=== PATIENT | male | born 1965 | race Two or more races ===

== ENCOUNTER 2019-10-05 17:32 | Emergency (ER) | payer SELFPAY ==
[~2019-10-05] VITALS: Ht 188 cm; Wt 81.6 kg
[2019-10-05] MEDS ORDERED: SODIUM CHLORIDE 0.9% 1,000 ML IVB ONE (17:39)
[2019-10-05 17:53] LABS: Basophils # (auto) 0 10 ^3/uL (0-0.2); Basophils % (auto) 0.4 % (0.0-2.0); Eosinophils # (auto) 0.3 10 ^3/uL (0-0.8); Eosinophils % (auto) 3.4 % (0.0-7.0); Hematocrit 45.2 % (41.0-53.0); Hemoglobin 15.5 g/dL (13.5-17.5); Lymphocytes # (auto) 1.4 10 ^3/uL (0.4-5.4); Lymphocytes % (auto) 17.4 % (10.0-50.0); Mean Corpuscular Hemoglobin 32.4 pg (28.0-32.0); Mean Corpuscular Hgb Conc. 34.3 g/dL (32.0-36.0); Mean Corpuscular Volume 94.5 fL (80.0-100.0); Monocytes # (auto) 0.7 10 ^3/uL (0-1.3); Monocytes % (auto) 8.6 % (0.0-12.0); Neutrophils # (auto) 5.8 10 ^3/uL (1.6-8.6); Neutrophils % (auto) 70.2 % (37.0-80.0); Nucleated Red Blood Cells % 0.1 %; Platelet Count (auto) 192 10^3/uL (140-450); Red Blood Cells 4.79 10^6/uL (4.5-5.90); Red Cell Distribution Width 13.5 % (11.8-14.3); White Blood Cell 8.2 10^3/uL (4.4-10.8)
[2019-10-05 18:09] LABS: Albumin 3.9 g/dL (3.4-5.0); Anion Gap 5 (5-15); Blood Alcohol < 3.0 mg/dL (0-5); Blood Urea Nitrogen 15 mg/dL (7-18); Calcium 8.7 mg/dL (8.5-10.1); Carbon Dioxide 27 mmol/L (21-32); Chloride 107 mmol/L (98-107); Glucose 234 mg/dL (74-106); Potassium 3.9 mmol/L (3.5-5.1); Sodium 139 mmol/L (136-145)
[2019-10-05 18:12] LABS: Alanine Aminotransferase 42 U/L (16-61); Alkaline Phosphatase 103 U/L (45-117); Aspartate Aminotransferase 38 U/L (15-37); BUN/Creatinine Ratio 10.4; Bilirubin, Total 0.5 mg/dL (0.2-1.0); GFR African American 66 mL/min; GFR Non-African American 55 mL/min
[2019-10-06 04:56] VITALS: BP 108/68
[2019-10-06 06:06] LABS: Alcohol, Urine < 3.0 mg/dL (0-10); Amphetamine Screen, Urine POSITIVE (NEGATIVE); Barbiturate Scree,Urine NEGATIVE (NEGATIVE); Benzodiazephine Screen, Urine NEGATIVE (NEGATIVE); Cannabinoid Screen, Urine POSITIVE (NEGATIVE); Cocaine Screen, Urine NEGATIVE (NEGATIVE); Opiate Scree,Urine NEGATIVE (NEGATIVE); Phencyclidine Screen, Urine NEGATIVE (NEGATIVE)
== END 2019-10-06 05:48 | disposition home or self-care (01) ==
LOC: EDBD 17:32 → ER 17:32
DX: T40.1X1A Poisoning by heroin, accidental (unintentional), initial encounter (principal); R41.82 Altered mental status, unspecified; F10.10 Alcohol abuse, uncomplicated; F15.10 Other stimulant abuse, uncomplicated; F17.210 Nicotine dependence, cigarettes, uncomplicated; F11.10 Opioid abuse, uncomplicated; Y90.0 Blood alcohol level of less than 20 mg/100 ml; Y92.89 Other specified places as the place of occurrence of the external cause
CPT/HCPCS: 36415; 71045; 80053; 80307; 80320; 85025; 93005; 96360

== ENCOUNTER 2019-10-15 04:11 | Emergency (ER) | payer MEDICAID, OTHER ==
[~2019-10-15] VITALS: Ht 185.4 cm; Wt 94.3 kg
[2019-10-15 09:29] VITALS: BP 146/89
== END 2019-10-15 09:30 | disposition home or self-care (01) ==
LOC: ER 04:11
DX: S22.41XA Multiple fractures of ribs, right side, initial encounter for closed fracture (principal); M25.511 Pain in right shoulder; F17.210 Nicotine dependence, cigarettes, uncomplicated; V23.4XXA Motorcycle driver injured in collision with car, pick-up truck or van in traffic accident, initial encounter; Y93.I9 Activity, other involving external motion; Y92.410 Unspecified street and highway as the place of occurrence of the external cause; Y99.8 Other external cause status
CPT/HCPCS: 70450; 71250; 72125; 73030; 74176

== ENCOUNTER 2019-10-23 22:18 | Emergency (ER) | payer MEDICAID, OTHER ==
[~2019-10-23] VITALS: Ht 185.4 cm; Wt 93.0 kg
[2019-10-23 22:45] VITALS: BP 142/88
[2019-10-23] MEDS ORDERED: KETOROLAC TROMETH 60MG/2ML VIAL IM ONE (23:30)
[2019-10-23] MEDS ORDERED: cefTRIAXone SOD 1,000 MG VL IM ONE (23:30)
[2019-10-23] MEDS ORDERED: TETANUS-DIPTH-ACEL PERTUSSIS 0.5ML SYR Tdap IM ONE (23:45)
== END 2019-10-24 00:50 | disposition home or self-care (01) ==
LOC: ER 22:18
DX: S91.332A Puncture wound without foreign body, left foot, initial encounter (principal); B35.3 Tinea pedis; X58.XXXA Exposure to other specified factors, initial encounter; Y93.89 Activity, other specified; Y92.89 Other specified places as the place of occurrence of the external cause; Y99.8 Other external cause status
CPT/HCPCS: 90471; 90715; 96372; 99284; J0696; J1885

== ENCOUNTER 2023-01-22 06:49 | Emergency (ER) | payer MEDICAID ==
[~2023-01-22] VITALS: Ht 185.4 cm; Wt 97.4 kg
[2023-01-22 08:02] VITALS: BP 134/81; PULSE 89; RESP 18; TEMP 97.4; O2SAT 99
[2023-01-22] MEDS ORDERED: KETOROLAC TROMETH 60MG/2ML VIAL IM ONE (08:15)
[2023-01-22] MEDS ORDERED: CYCL-839 PO (08:32)
[2023-01-22] MEDS ORDERED: IBUP1TAB5 PO (08:32)
== END 2023-01-22 08:56 | disposition home or self-care (01) ==
LOC: ER 06:49
DX: S42.031A Displaced fracture of lateral end of right clavicle, initial encounter for closed fracture (principal); E78.5 Hyperlipidemia, unspecified; F17.210 Nicotine dependence, cigarettes, uncomplicated; F15.90 Other stimulant use, unspecified, uncomplicated; Z79.1 Long term (current) use of non-steroidal anti-inflammatories (NSAID); Z79.899 Other long term (current) drug therapy; V19.9XXA Pedal cyclist (driver) (passenger) injured in unspecified traffic accident, initial encounter; Y93.I9 Activity, other involving external motion; Y92.89 Other specified places as the place of occurrence of the external cause; Y99.8 Other external cause status
CPT/HCPCS: 73030; 96372; 99283; J1885

== ENCOUNTER 2023-05-25 23:02 | Inpatient (IN) | payer MEDICAID ==
[~2023-05-25] VITALS: Ht 193 cm; Wt 83.5 kg
[~2023-05-25 23:02] MED LIST: CYCL-839 PO; IBUP1TAB5 PO
[2023-05-26 00:20] LABS: Basophils # (auto) 0 10 ^3/uL (0-0.2); Basophils % (auto) 0.5 % (0.0-2.0); Eosinophils # (auto) 0.5 10 ^3/uL (0-0.8); Eosinophils % (auto) 4.9 % (0.0-7.0); Hematocrit 43.3 % (41.0-53.0); Hemoglobin 14.5 g/dL (13.5-17.5); Lymphocytes # (auto) 1.2 10 ^3/uL (0.4-5.4); Lymphocytes % (auto) 12.6 % (10.0-50.0); Mean Corpuscular Hemoglobin 31.8 pg (28.0-32.0); Mean Corpuscular Hgb Conc. 33.5 g/dL (32.0-36.0); Mean Corpuscular Volume 94.9 fL (80.0-100.0); Monocytes % (auto) 9.9 % (0.0-12.0); Neutrophils % (auto) 72.1 % (37.0-80.0); Red Blood Cells 4.57 10^6/uL (4.5-5.90); Red Cell Distribution Width 12.9 % (11.8-14.3); White Blood Cell 9.7 10^3/uL (4.4-10.8)
[2023-05-26 00:40] LABS: Alanine Aminotransferase 130 U/L (7-40); Albumin 4.2 g/dL (3.2-4.8); Alkaline Phosphatase 97 U/L (46-116); Anion Gap 6 (5-15); Aspartate Aminotransferase 70 U/L (13-40); BUN/Creatinine Ratio 10.2 (10.0-20.0); Blood Urea Nitrogen 9 mg/dL (9-23); Calcium 8.8 mg/dL (8.7-10.4); Carbon Dioxide 23 mmol/L (20-30); Chloride 106 mmol/L (98-107); Glucose 142 mg/dL (74-106); Lipase 37 U/L (12-53); Potassium 3.5 mmol/L (3.5-5.1); Sodium 135 mmol/L (136-145)
[2023-05-26] MEDS: HYDROcodone-ACET 10/325MG TAB PO ONE (00:40)
[2023-05-26 00:41] LABS: Bilirubin, Total 0.4 mg/dL (0.2-1.0)
[2023-05-26 02:10] VITALS: PULSE 89; RESP 20; O2SAT 97
[2023-05-26] MEDS: CLINDAMYCIN 900MG IV 50 ML IV ONE (02:34)
[2023-05-26] MEDS ORDERED: IBUPROFEN 600 MG TAB PO PRN (03:30)
[2023-05-26] MEDS ORDERED: DOCUSATE SOD 100 MG CAP PO PRN (03:30)
[2023-05-26] MEDS ORDERED: ONDANSETRON HCL 4 MG/2 ML VIAL IV PRN (03:30)
[2023-05-26] MEDS: SODIUM CHLORIDE 0.9% 1,000 ML IV SCH (04:26)
[2023-05-26 04:29] LABS: Alanine Aminotransferase 137 U/L (7-40); Albumin 4.2 g/dL (3.2-4.8); Alkaline Phosphatase 98 U/L (46-116); Anion Gap 7 (5-15); Aspartate Aminotransferase 76 U/L (13-40); BUN/Creatinine Ratio 7.4 (10.0-20.0); Blood Urea Nitrogen 6 mg/dL (9-23); Calcium 8.8 mg/dL (8.7-10.4); Carbon Dioxide 22 mmol/L (20-30); Chloride 106 mmol/L (98-107); Glucose 94 mg/dL (74-106); Potassium 3.7 mmol/L (3.5-5.1); Sodium 135 mmol/L (136-145)
[2023-05-26 04:30] LABS: Bilirubin, Total 0.6 mg/dL (0.2-1.0); Total Protein 7.2 g/dL (5.7-8.2)
[2023-05-26 04:47] LABS: Basophils # (auto) 0 10 ^3/uL (0-0.2); Basophils % (auto) 0.6 % (0.0-2.0); Eosinophils # (auto) 0.5 10 ^3/uL (0-0.8); Eosinophils % (auto) 6.6 % (0.0-7.0); Lymphocytes # (auto) 1.3 10 ^3/uL (0.4-5.4); Lymphocytes % (auto) 16.1 % (10.0-50.0); Mean Corpuscular Hgb Conc. 33.4 g/dL (32.0-36.0); Mean Corpuscular Volume 95.8 fL (80.0-100.0); Monocytes # (auto) 0.8 10 ^3/uL (0-1.3); Monocytes % (auto) 10.2 % (0.0-12.0); Neutrophils # (auto) 5.3 10 ^3/uL (1.6-8.6); Neutrophils % (auto) 66.5 % (37.0-80.0); Red Cell Distribution Width 13.4 % (11.8-14.3)
[2023-05-26] MEDS ORDERED: NITROGLYCERIN 0.4 MG SL TAB SL PRN (05:15)
[2023-05-26] MEDS ORDERED: MORPHINE SULFATE INJ 2 MG/ml SYRG IV PRN (05:15)
[2023-05-26 08:46] VITALS: PULSE 82; RESP 19; O2SAT 100
[2023-05-26] MEDS: CLINDAMYCIN 600MG IV 50 ML IV SCH (10:30)
[2023-05-26] MEDS ORDERED: VANCOMYCIN PER PHARMACY 0 MG IV SCH (12:00)
[2023-05-26] MEDS: HYDROcodone-ACET 5/325MG TAB PO PRN (14:24)
[2023-05-26] MEDS: cefTRIAXone 1GM/50ML D5W 50 ML IV ONE (14:24)
[2023-05-26] MEDS: VANCOMYCIN 1GM/200ML 200 ML IV ONE (14:25)
[2023-05-26 14:30] VITALS: RESP 19
[2023-05-26 19:30] VITALS: PULSE 80; RESP 20; O2SAT 98
[2023-05-26 21:11] VITALS: BP 131/85; PULSE 81; PULSE 82; RESP 20; TEMP 97.8; O2SAT 99
[2023-05-26 22:00] VITALS: BP 131/85; PULSE 82; RESP 20; TEMP 97.8; O2SAT 99
[2023-05-26] MEDS: VANCOMYCIN 1GM/200ML 200 ML IV SCH (22:21)
[2023-05-27 04:57] VITALS: BP 125/95; PULSE 82; RESP 18; TEMP 97.7; O2SAT 99
[2023-05-27 07:17] LABS: Basophils # (auto) 0 10 ^3/uL (0-0.2); Basophils % (auto) 0.7 % (0.0-2.0); Eosinophils # (auto) 0.5 10 ^3/uL (0-0.8); Hematocrit 44.5 % (41.0-53.0); Lymphocytes # (auto) 1.1 10 ^3/uL (0.4-5.4); Lymphocytes % (auto) 16.5 % (10.0-50.0); Mean Corpuscular Hemoglobin 32.1 pg (28.0-32.0); Mean Corpuscular Hgb Conc. 33.8 g/dL (32.0-36.0); Mean Corpuscular Volume 95.1 fL (80.0-100.0); Monocytes # (auto) 0.8 10 ^3/uL (0-1.3); Monocytes % (auto) 12.1 % (0.0-12.0); Neutrophils # (auto) 4.1 10 ^3/uL (1.6-8.6); Neutrophils % (auto) 63.7 % (37.0-80.0); Nucleated Red Blood Cells % 0.4 %; Red Blood Cells 4.68 10^6/uL (4.5-5.90); Red Cell Distribution Width 12.9 % (11.8-14.3); White Blood Cell 6.5 10^3/uL (4.4-10.8)
[2023-05-27 07:35] LABS: Alanine Aminotransferase 130 U/L (7-40); Alkaline Phosphatase 92 U/L (46-116); Anion Gap 6 (5-15); Blood Urea Nitrogen 6 mg/dL (9-23); Calcium 8.9 mg/dL (8.5-10.1); Carbon Dioxide 24 mmol/L (20-30); Chloride 106 mmol/L (98-107); Glucose 84 mg/dL (74-106); Potassium 4.1 mmol/L (3.5-5.1); Sodium 136 mmol/L (136-145)
[2023-05-27 07:36] LABS: Albumin 3.8 g/dL (3.2-4.8); Aspartate Aminotransferase 83 U/L (13-40)
[2023-05-27 07:37] LABS: Bilirubin, Total 0.5 mg/dL (0.2-1.0); Total Protein 6.7 g/dL (5.7-8.2)
[2023-05-27 08:00] VITALS: PULSE 85; RESP 18; O2SAT 100
[2023-05-27 09:17] VITALS: BP 132/89; PULSE 85; RESP 18; TEMP 98; O2SAT 100
[2023-05-27] MEDS: cefTRIAXone 1GM/50ML D5W 50 ML IV SCH (09:45)
[2023-05-27 13:00] VITALS: BP 114/78; PULSE 80; RESP 20; TEMP 97.6; O2SAT 98
[2023-05-27 17:00] VITALS: BP 110/66; PULSE 66; RESP 18; TEMP 98.6; O2SAT 95
[2023-05-27 20:00] VITALS: RESP 18
[2023-05-27] MEDS: VANCOMYCIN 1GM/200ML 200 ML IV SCH (20:23)
[2023-05-28 05:00] VITALS: BP 99/70; PULSE 80; RESP 20; TEMP 97.8; O2SAT 99
[2023-05-28 08:06] LABS: Chloride 107 mmol/L (98-107); Potassium 4.1 mmol/L (3.5-5.1); Sodium 136 mmol/L (136-145)
[2023-05-28 08:07] LABS: Anion Gap 5 (5-15); Calcium 8.9 mg/dL (8.7-10.4); Carbon Dioxide 24 mmol/L (20-30)
[2023-05-28 08:12] LABS: BUN/Creatinine Ratio 11.3 (10.0-20.0); Blood Urea Nitrogen 9 mg/dL (9-23); Glucose 87 mg/dL (74-106)
[2023-05-28 08:30] VITALS: BP 118/70; PULSE 79; RESP 17; TEMP 97.8; O2SAT 99
[2023-05-28 12:30] VITALS: BP 133/81; PULSE 82; RESP 18; TEMP 97.3; O2SAT 99
[2023-05-28 16:56] VITALS: BP 130/67; PULSE 74; RESP 18; TEMP 97.8; O2SAT 100
[2023-05-28 20:00] VITALS: PULSE 88; RESP 18; O2SAT 100
[2023-05-28 22:00] VITALS: BP 118/68; PULSE 88; RESP 18; TEMP 97.8; O2SAT 100
[2023-05-29 05:00] VITALS: BP 93/53; PULSE 68; RESP 18; TEMP 98.5; O2SAT 97
[2023-05-29 07:28] LABS: Alanine Aminotransferase 117 U/L (7-40); Albumin 4.2 g/dL (3.2-4.8); Alkaline Phosphatase 95 U/L (46-116); Anion Gap 6 (5-15); Aspartate Aminotransferase 61 U/L (13-40); BUN/Creatinine Ratio 13.4 (10.0-20.0); Bilirubin, Total 0.4 mg/dL (0.2-1.0); Blood Urea Nitrogen 11 mg/dL (9-23); Carbon Dioxide 24 mmol/L (20-30); Chloride 107 mmol/L (98-107); Glucose 81 mg/dL (74-106); Potassium 4.3 mmol/L (3.5-5.1); Sodium 137 mmol/L (136-145); Total Protein 7.1 g/dL (5.7-8.2)
[2023-05-29 08:53] VITALS: BP 116/75; PULSE 83; RESP 19; TEMP 98.3; O2SAT 95
[2023-05-29 09:07] LABS: Hepatitis B Surface Antigen Negative (Negative)
[2023-05-29 09:27] LABS: Hepatitis A Ab IgM Negative
[2023-05-29 09:28] LABS: Hepatitis B Core IgM Negative
[2023-05-29 09:58] LABS: Hepatitis C Antibody Reactive (Negative)
[2023-05-29] MEDS: MORPHINE SULFATE INJ 2 MG/ml SYRG IV PRN (11:36)
[2023-05-29 13:05] VITALS: BP 124/95; PULSE 72; RESP 20; TEMP 98.4; O2SAT 99
[2023-05-29 17:00] VITALS: BP 129/77; PULSE 69; RESP 16; TEMP 97.3; O2SAT 96
[2023-05-29] MEDS: VANCOMYCIN 1GM/200ML 200 ML IV SCH (18:36)
[2023-05-29 20:00] VITALS: PULSE 85; RESP 20; O2SAT 97
[2023-05-29 22:00] VITALS: BP 127/76; PULSE 85; RESP 20; TEMP 97.9; O2SAT 97
[2023-05-29] MEDS: diphenhdrAMINE HCL 25 MG CAP PO PRN (22:03)
[2023-05-30 05:00] VITALS: BP 95/56; PULSE 66; RESP 20; TEMP 97.8; O2SAT 99
[2023-05-30 06:13] LABS: Basophils # (auto) 0.1 10 ^3/uL (0-0.2); Basophils % (auto) 1.2 % (0.0-2.0); Eosinophils # (auto) 0.4 10 ^3/uL (0-0.8); Hematocrit 48.3 % (41.0-53.0); Hemoglobin 16.4 g/dL (13.5-17.5); Lymphocytes # (auto) 1.3 10 ^3/uL (0.4-5.4); Lymphocytes % (auto) 24.3 % (10.0-50.0); Mean Corpuscular Hemoglobin 31.6 pg (28.0-32.0); Mean Corpuscular Hgb Conc. 33.9 g/dL (32.0-36.0); Mean Corpuscular Volume 93.3 fL (80.0-100.0); Monocytes # (auto) 0.7 10 ^3/uL (0-1.3); Monocytes % (auto) 12.5 % (0.0-12.0); Neutrophils # (auto) 3.1 10 ^3/uL (1.6-8.6); Red Blood Cells 5.18 10^6/uL (4.5-5.90); Red Cell Distribution Width 12.9 % (11.8-14.3); White Blood Cell 5.5 10^3/uL (4.4-10.8)
[2023-05-30 06:29] LABS: Alanine Aminotransferase 107 U/L (7-40); Albumin 4.3 g/dL (3.2-4.8); Alkaline Phosphatase 97 U/L (46-116); Anion Gap 5 (5-15); Aspartate Aminotransferase 55 U/L (13-40); BUN/Creatinine Ratio 17.1 (10.0-20.0); Blood Urea Nitrogen 14 mg/dL (9-23); Calcium 9.1 mg/dL (8.7-10.4); Carbon Dioxide 25 mmol/L (20-30); Chloride 107 mmol/L (98-107); Glucose 86 mg/dL (74-106); Magnesium 2.1 mg/dL (1.6-2.6); Potassium 4.1 mmol/L (3.5-5.1); Sodium 137 mmol/L (136-145)
[2023-05-30 06:30] LABS: Bilirubin, Total 0.5 mg/dL (0.2-1.0); Total Protein 7.3 g/dL (5.7-8.2)
[2023-05-30 08:24] LABS: Urine Bacteria NONE SEEN /hpf (None Seen); Urine Blood Negative /uL (Negative); Urine Clarity Clear (Clear); Urine Color Yellow (Yellow); Urine Mucus FEW (None Seen); Urine Protein, UAD Negative (Negative); Urine Specific Gravity 1.024 (1.001-1.035); Urine Urobilinogen Normal (Negative); Urine WBC 1 /hpf (0 - 3); Urine pH 5.5 (5.0-8.0)
[2023-05-30 08:30] LABS: Amphetamine Screen, Urine Pos (NEGATIVE); Barbiturate Scree,Urine Neg (NEGATIVE); Benzodiazephine Screen, Urine Neg (NEGATIVE); Cannabinoid Screen, Urine Neg (NEGATIVE); Cocaine Screen, Urine Neg (NEGATIVE); Opiate Scree,Urine Neg (NEGATIVE); Phencyclidine Screen, Urine Pos (NEGATIVE)
[2023-05-30 09:00] VITALS: BP 111/67; PULSE 75; RESP 20; TEMP 98.6; O2SAT 99
[2023-05-30] MEDS ORDERED: BACDST PO (10:39)
[2023-05-30] MEDS: VANCOMYCIN 1GM/200ML 200 ML IV SCH (12:53)
[2023-05-30 13:00] VITALS: BP 125/77; PULSE 76; RESP 20; TEMP 98.1; O2SAT 100
[2023-05-30 15:34] VITALS: TEMP 36.7
[2023-05-30 16:36] VITALS: BP 118/79; PULSE 73; RESP 16; TEMP 98; O2SAT 100
== END 2023-05-30 17:51 | disposition home health service (06) | DRG 383 ==
LOC: ER 23:02 → OVERFLOW 05-26 05:08 → WEST WING 05-26 20:55
PROVIDERS: ADMIT Internal Medicine Geriatric Medicine; ATTEND Internal Medicine Geriatric Medicine
DX: L03.116 Cellulitis of left lower limb (principal); E87.1 Hypo-osmolality and hyponatremia; E78.5 Hyperlipidemia, unspecified; R74.01 Elevation of levels of liver transaminase levels; B19.20 Unspecified viral hepatitis C without hepatic coma; F17.210 Nicotine dependence, cigarettes, uncomplicated; F15.90 Other stimulant use, unspecified, uncomplicated
CPT/HCPCS: 36415; 73718; 76705; 80048; 80053; 80074; 80202; 80307; 81001; 82105; 83036; 83605; 83690; 83735; 83880; 84484; 85025; 87040; 87077; 87081; 87186; 87205; 93971; G0378; J3490

== ENCOUNTER 2023-12-08 20:54 | Emergency (ER) | payer MEDICAID ==
[~2023-12-08] VITALS: Ht 180.3 cm; Wt 85.0 kg
[~2023-12-08 20:54] MED LIST changes: +BACDST PO; -CYCL-839 PO; -IBUP1TAB5 PO
[2023-12-08] MEDS: NALOXONE HCL 1MG/ML 2ML SYRINGE IV ONE (21:00)
[2023-12-08] MEDS: LORazepam 2MG/ML-1ML VIAL ONE (21:44)
[2023-12-08] MEDS: HALOPERIDOL LACTATE 5 MG/ML INJ VIAL IM ONE (21:44)
[2023-12-08] MEDS: HALOPERIDOL LACTATE 5 MG/ML INJ VIAL ONE (21:44)
[2023-12-08] MEDS: LORazepam 2MG/ML-1ML VIAL IV ONE (21:44)
[2023-12-08 21:56] VITALS: TEMP 98
[2023-12-09 01:43] LABS: Basophils # (auto) 0 10 ^3/uL (0-0.2); Basophils % (auto) 0.6 % (0.0-2.0); Eosinophils # (auto) 0.3 10 ^3/uL (0-0.8); Eosinophils % (auto) 5.3 % (0.0-7.0); Hematocrit 43.1 % (41.0-53.0); Lymphocytes # (auto) 1.3 10 ^3/uL (0.4-5.4); Lymphocytes % (auto) 21.1 % (10.0-50.0); Mean Corpuscular Hemoglobin 33.5 pg (28.0-32.0); Mean Corpuscular Hgb Conc. 34.8 g/dL (32.0-36.0); Mean Corpuscular Volume 96.5 fL (80.0-100.0); Monocytes # (auto) 0.6 10 ^3/uL (0-1.3); Neutrophils # (auto) 3.8 10 ^3/uL (1.6-8.6); Platelet Count (auto) 146 10^3/uL (140-450); Red Blood Cells 4.46 10^6/uL (4.5-5.90); Red Cell Distribution Width 13.1 % (11.8-14.3); White Blood Cell 6.1 10^3/uL (4.4-10.8)
[2023-12-09] MEDS: SODIUM CHLORIDE 0.9% 1,000 ML IV ONE (01:50)
[2023-12-09 01:56] LABS: INR 1.02 (0.9-1.15); Partial Thromboplastin Time 24.9 SEC (24.5-34.5); Prothrombin Time 10.8 sec (9.3-11.8)
[2023-12-09 01:59] LABS: Alanine Aminotransferase 41 U/L (7-40); Albumin 3.9 g/dL (3.2-4.8); Alkaline Phosphatase 79 U/L (46-116); Anion Gap 4 (5-15); Aspartate Aminotransferase 38 U/L (13-40); BUN/Creatinine Ratio 13.1 (10.0-20.0); Bilirubin, Total 0.4 mg/dL (0.2-1.0); Blood Alcohol < 3.0 mg/dL (<10); Blood Urea Nitrogen 11 mg/dL (9-23); Calcium 9.2 mg/dL (8.7-10.4); Carbon Dioxide 25 mmol/L (20-30); Chloride 109 mmol/L (98-107); Glucose 105 mg/dL (74-106); Potassium 3.9 mmol/L (3.5-5.1); Sodium 138 mmol/L (136-145); Total Protein 6.5 g/dL (5.7-8.2)
[2023-12-09] MEDS: MAALOX PLUS or MAALOX 30 ML PO ONE (03:00)
[2023-12-09] MEDS: IOHEXOL 350 MG/ML 100ML IJ ONE (05:12)
[2023-12-09 06:00] VITALS: RESP 12
[2023-12-09 08:00] VITALS: BP 121/72; PULSE 65; O2SAT 100
== END 2023-12-09 11:36 | disposition home or self-care (01) ==
LOC: ER 20:54
DX: R41.82 Altered mental status, unspecified (principal); G93.41 Metabolic encephalopathy; F19.10 Other psychoactive substance abuse, uncomplicated; E78.5 Hyperlipidemia, unspecified; F17.210 Nicotine dependence, cigarettes, uncomplicated; F15.10 Other stimulant abuse, uncomplicated; F11.10 Opioid abuse, uncomplicated; Z88.0 Allergy status to penicillin; Z88.2 Allergy status to sulfonamides
CPT/HCPCS: 36415; 70496; 80053; 80320; 83880; 84484; 85025; 85610; 85730; 93005; 96361; 96372; 96374; 96375; 99291; J1630; J2060; J2310; J7030; Q9967

== ENCOUNTER 2024-01-06 23:37 | Emergency (ER) | payer MEDICAID ==
[~2024-01-06] VITALS: Ht 185.4 cm; Wt 85.6 kg
[2024-01-07 03:47] VITALS: BP 121/78; TEMP 97.6
[2024-01-07] MEDS: KETOROLAC TROMETH 30 MG/ML 1ML VIAL IM ONE (03:54)
[2024-01-07 04:31] VITALS: PULSE 73; RESP 16; O2SAT 98
== END 2024-01-07 04:32 | disposition home or self-care (01) ==
LOC: ER 23:37
DX: R51.9 Headache, unspecified (principal); E78.5 Hyperlipidemia, unspecified; F17.210 Nicotine dependence, cigarettes, uncomplicated; F15.90 Other stimulant use, unspecified, uncomplicated; Z88.0 Allergy status to penicillin; Z79.899 Other long term (current) drug therapy
CPT/HCPCS: 70450; 96372; 99285; J1885

== ENCOUNTER 2024-02-01 22:50 | Emergency (ER) | payer MEDICAID ==
[~2024-02-01] VITALS: Ht 185.4 cm; Wt 81.8 kg
[2024-02-01 23:44] VITALS: BP 125/80; PULSE 96; RESP 17; TEMP 98.8; O2SAT 97
--- NOTE | 2024-02-02 00:01 | ED.PDOC ---
History of Present Illness HPI Comments 58 y/o M, with a Hx of pre-DM, HLD, liver disease, and polysubstance abuse, presents with c/o bilateral leg weakness and numbness and shortness of breath for 1 day. Patient reports unprovoked onset of symptoms, yesterday, morning, that has been persisting, intermittently, since then. Patient comments on no r ecent stress, injuries, sick contact, travel, spoiled food intake, or substance use/exposure aside from methamphetamine and cigarettes. Patient endorses on no further relevant or pertinent past medical, surgical, or family Hx. Patient denies having any headache, dizziness, lightheadedness, chest pain, nausea, vomiting, fever, chills, or other associated symptoms or modifiers at this time. Chief Complaint: Lower Extremity Time Seen by MD: 23:45 Primary Care Provider: JESSICA Reviewed Notes: Nurses Notes, Medications, Allergies Allergies: Coded Allergies: Penicillins (Verified Allergy, Severe, 05/29/23) Anaphylaxis Home Meds Active Scripts Sulfamethoxazole W/Trimethopri (Bactrim Ds Tablet) 1 Tab Tb, 1 TAB PO BID for 10 Days, #20 TAB Prov:KARSTEN PRIDE MD 05/30/23 Information Source: Patient Mode of Arrival: Wheelchair Severity: Moderate Timing: Days Duration: Since onset Prehospital treatment: None Past Medical History PAST MEDICAL HISTORY: DM (pre-DM), High Lipids, Liver Surgical History: Denies all surgeries Family History Family History: Unobtainable Social History Smoker: Cigarettes Alcohol: Occasionally Drugs: Heroin, Methamphetamine, Other Lives In: Home Constitutional: denies: chills, diaphoresis, fatigue, fever, malaise, sweats, weakness, others EENTM: denies: blurred vision, double vision, ear bleeding, ear discharge, ear drainage, ear pain, ear ringing, eye pain, eye redness, hearing loss, mouth pain, mouth swelling, nasal discharge, nose bleeding, nose congestion, nose pain, photophobia, tearing, throat pain, throat swelling, voice changes, others Respiratory: reports: shortness of breath; denies: cough, hemoptysis, orthopnea, SOB at rest, SOB with excertion, stridor, wheezing, others Cardiovascular: denies: chest pain, dizzy spells, diaphoresis, Dyspnea on exertion, edema, irregular heart beat, left arm pain, lightheadedness, palpitations, PND, syncope, others Gastrointestinal: denies: abdomen distended, abdominal pain, blood streaked bowels, constipated, diarrhea, dysphagia, difficulty swallowing, hematemesis, melena, nausea, poor appetite, poor fluid intake, rectal bleeding, rectal pain, vomiting, others Genitourinary: denies: burning, dysuria, flank pain, frequency, hematuria, incontinence, penile discharge, penile sore, pain, testicle pain, testicle swelling, urgency, others Neurological: reports: numbness (bilateral legs ), weakness (bilateral legs ); denies: dizziness, fainting, headache, left sided numbness, left sided weakness, paresthesia, pre-existing deficit, right sided numbness, right sided weakness, seizure, speech problems, tingling, tremors, others Musculoskeletal: denies: back pain, gout, joint pain, joint swelling, muscle pain, muscle stiffness, neck pain, others Integumetry: denies: bruises, change in color, change in hair/nails, dryness, laceration, lesions, lumps, rash, wounds, others Allergic/Immunocompromised: denies: Difficulty Healing, Frequent Infections, Hives, Itching, others Hematologic/Lymphatic: denies: anemia, blood clots, easy bleeding, easy bruising, swollen glands, others Endocrine: denies: excessive hunger, excessive sweating, excessive thirst, excessive urination, flushing, intolerance to cold, intolerance to heat, unexplained weight gain, unexplained weight loss, others Psychiatric: denies: anxiety, bipolar disorder, depression, hopeless, panic disorder, schizophrenia, sleepless, suicidal, others All Other Systems: Reviewed and Negative Physical Exam General Appearance: Moderate Distress HEENT: Normal ENT Inspection, Pharynx Normal, TMs Normal Neck: Full Range of Motion, Non-Tender, Normal, Normal Inspection Respiratory: Chest Non-Tender, Lungs Clear, No Accessory Muscle Use, No Respiratory Distress, Normal Breath Sounds Cardiovascular: No Edema, No JVD, No Murmur, No Gallop, Normal Peripheral Pulses, Regular Rate/Rhythm Breast Exam: Deferred Gastrointestinal: No Organomegaly, Non Tender, No Pulsatile Mass, Normal Bowel Sounds, Soft Genitalia: Deferred Pelvic: Deferred Rectal: Deferred Extremities: No calf tenderness, No pedal edema Musculoskeletal : Apperance: Normal Neurologic: Alert, Motor Weakness Cerebellar Function: NOT DONE Reflexes: NOT DONE Skin: Dry, Normal Color, Warm Lymphatic: No Adenopathy Was a procedure done? Was a procedure done?: No Differential Dx Considerations may include: electrolyte imbalance, bronchitis, Covid19, PNA, URI, viral syndrome, substance abuse X-Ray, Labs, Meds, VS Vital Signs Date Time Temp Pulse Resp B/P (MAP) Pulse Ox O2 Delivery O2 Flow Rate FiO2 02/01/24 23:44 98.8 96 17 125/80 (95) 97 98.8 02/01/24 23:44 Room Air* 0 21 02/01/24 23:11 97.5 89 20 127/84 (98) [address] [address] Ph: [phone] DIAGNOSTIC IMAGING Diagnostic Imaging Report : [id number] Signed PATIENT: FERNY OTTO ACCT: [id number] UNIT: [id number] : 1965 LOC: ER ROOM / BED: / AGE / SEX: 58 / M ADM STATUS: REG ER SERVICE 2351 ORDERING PHYSICIAN: SELENA SOOD MD PROCEDURE(s): HWOCT - HEAD WITHOUT CONTRAST REASON: tia ORDER NUMBER(s): [id number], ACCESSION NUMBER(s): [id number] EXAM: CT HEAD WITHOUT CONTRAST HISTORY: tia COMPARISON: CT HEAD WITHOUT CONTRAST on DOS: 01/07/24, HEAD WITHOUT CONTRAST on DOS: 10/15/19 TECHNIQUE: Axial images were obtained and reformatted in coronal and sagittal planes. All CT scans at this medical facility are performed using dose modulation techniques as appropriate to a performed exam including the following: Automated exposure control was utilized; adjustment of the MA and/or KV according to patient size; and use of iterative reconstruction technique. CT Dose: CTDI volume is 61.93 mGy. Dose-length product is 992.55 mGy*cm FINDINGS: Supratentorial Region: No evidence for large acute territorial ischemia. No intracranial hemorrhage is noted. Posterior Fossa: No acute abnormality. Brainstem: Unremarkable. Sellar/Suprasellar Region: Unremarkable. Ventricles, Cisterns, Sulci: Age-appropriate. Orbits: Unremarkable. Paranasal Sinuses: Unremarkable. Mastoid Air Cells: .Trace right-sided mastoid effusion. Vasculature: Unremarkable. Bones/Soft Tissues: No acute abnormality. Other: None. IMPRESSION: No acute intracranial process. Trace right-sided mastoid effusion. ATED BY: KATHI SELLERS DO DICTATED DATE/TIME: 02/02/2426 SIGNED BY: KATHI SELLERS DO SIGNED DATE/TIME: 02/02/2426 CC: Patient alert. History of drug use. Methamphetamine. Vitals stable. Can not walk. Possible TIA versus CVA. Counseled patient on effects of using drugs for 15 minutes. Counseled patient on effects of smoking cigarettes for 15 minutes. Possibly will need MRI. Reviewed his previous visit. Explained to the patient about his treatment plan. Continue cardiac monitoring. Time of 1ST Reevaluation: 00:15 Reevaluation 1ST: Unchanged Patient Education/Counseling: Diagnosis, Treatment Family Education/Counseling: No Family Present Departure 1 Departure Time of Disposition: 00:11 Impression: Primary Impression: TIA (transient ischemic attack) Disposition: ADMITTED INPATIENT Admit to: Med Surg Condition: Guarded Critical Care Note Critical Care Time?: Yes (45 min-critical care time only) Stability Stability form required: No Heart Score Heart Score: Heart Score Response (Comments) Value History N/A 0 EKG N/A 0 Age N/A 0 Risk Factors N/A 0 Troponin N/A 0 Total 0 I personally scribed for SELENA SOOD MD ([email or web address]) on 02/02/24 at 00:01. Electronically submitted by Paul Justin ([email or web address]). I personally scribed for SELENA SOOD MD ([email or web address]) on 02/02/24 at 01:41. Electronically submitted by Paul Justin [email or web address]). SELENA SOOD MD Feb 02, 2024 00:01
--- NOTE | 2024-02-02 00:31 | DVH ---
EXAM: CT HEAD WITHOUT CONTRAST HISTORY: tia COMPARISON: CT HEAD WITHOUT CONTRAST on DOS: 01/07/24, HEAD WITHOUT CONTRAST on DOS: 10/15/19 TECHNIQUE: Axial images were obtained and reformatted in coronal and sagittal planes. All CT scans at this medical facility are performed using dose modulation techniques as appropriate t o a performed exam including the following: Automated exposure control was utilized; adjustment of th e MA and/or KV according to patient size; and use of iterative reconstruction technique. CT Dose: CTDI volume is 61.93 mGy. Dose-length product is 992.55 mGy*cm FINDINGS: Supratentorial Region: No evidence for large acute territorial ischemia. No intracranial hemorrhage is noted. Posterior Fossa: No acute abnormality. Brainstem: Unremarkable. Sellar/Suprasellar Region: Unremarkable. Ventricles, Cisterns, Sulci: Age-appropriate. Orbits: Unremarkable. Paranasal Sinuses: Unremarkable. Mastoid Air Cells: .Trace right-sided mastoid effusion. Vasculature: Unremarkable. Bones/Soft Tissues: No acute abnormality. Other: None. IMPRESSION: No acute intracranial process. Trace right-sided mastoid effusion.
[2024-02-02 00:58] LABS: Basophils # (auto) 0.1 10 ^3/uL (0-0.2); Basophils % (auto) 0.7 % (0.0-2.0); Eosinophils # (auto) 0.3 10 ^3/uL (0-0.8); Eosinophils % (auto) 3.3 % (0.0-7.0); Hematocrit 50.9 % (41.0-53.0); Hemoglobin 16.9 g/dL (13.5-17.5); Lymphocytes # (auto) 1.8 10 ^3/uL (0.4-5.4); Lymphocytes % (auto) 20.6 % (10.0-50.0); Mean Corpuscular Hemoglobin 32.4 pg (28.0-32.0); Mean Corpuscular Hgb Conc. 33.3 g/dL (32.0-36.0); Mean Corpuscular Volume 97.4 fL (80.0-100.0); Monocytes % (auto) 11.2 % (0.0-12.0); Neutrophils # (auto) 5.7 10 ^3/uL (1.6-8.6); Neutrophils % (auto) 64.2 % (37.0-80.0); Nucleated Red Blood Cells % 0.4 %; Platelet Count (auto) 183 10^3/uL (140-450); Red Blood Cells 5.22 10^6/uL (4.5-5.90); Red Cell Distribution Width 13.9 % (11.8-14.3); White Blood Cell 8.9 10^3/uL (4.4-10.8)
[2024-02-02 01:06] LABS: Chloride 105 mmol/L (98-107); Potassium 3.6 mmol/L (3.5-5.1); Sodium 137 mmol/L (136-145)
[2024-02-02 01:07] LABS: Anion Gap 8 (5-15); Carbon Dioxide 24 mmol/L (20-31)
[2024-02-02 01:08] LABS: Calcium 9.8 mg/dL (8.7-10.4)
[2024-02-02 01:12] LABS: BUN/Creatinine Ratio 11.1 (10.0-20.0); Blood Urea Nitrogen 16 mg/dL (9-23); Glucose 107 mg/dL (74-106)
== END 2024-02-02 00:26 | disposition left against medical advice (07) ==
LOC: ER 22:50 → OVERFLOW 02-02 00:26 → UNDOADMIN 02-02 00:26 → UNDODISIN 02-02 03:50
DX: G45.9 Transient cerebral ischemic attack, unspecified (principal); E78.5 Hyperlipidemia, unspecified; F17.210 Nicotine dependence, cigarettes, uncomplicated; F15.90 Other stimulant use, unspecified, uncomplicated; Z79.899 Other long term (current) drug therapy; Z88.0 Allergy status to penicillin
CPT/HCPCS: 36415; 70450; 80048; 84484; 85025; 99291; G0378

== ENCOUNTER 2024-03-10 15:18 | Emergency (ER) | payer MEDICAID ==
[~2024-03-10] VITALS: Ht 188 cm; Wt 82.0 kg
[2024-03-10 15:20] VITALS: BP 170/98; RESP 16; O2SAT 99
[2024-03-10 15:27] VITALS: PULSE 69
--- NOTE | 2024-03-12 09:29 | ECG ---
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
== END 2024-03-10 18:57 | disposition left against medical advice (07) ==
LOC: ER 15:18 → EDBD 15:18 → ER 18:57
DX: R53.1 Weakness (principal); M25.512 Pain in left shoulder; R10.9 Unspecified abdominal pain; F12.90 Cannabis use, unspecified, uncomplicated; Z53.21 Procedure and treatment not carried out due to patient leaving prior to being seen by health care provider
CPT/HCPCS: 93005

== ENCOUNTER 2024-03-20 23:44 | Emergency (ER) | payer MEDICAID ==
[~2024-03-20] VITALS: Ht 185.4 cm; Wt 85.8 kg
--- NOTE | 2024-03-21 02:24 | ED.PDOC ---
History of Present Illness(SKN HPI Comments This is a 58-year-old male presents to the ED chief complaint rash to abdomen. Patient states he was seen here in the ER last week states he had a rash to his lower abdomen at that time. Notes EKG was done in the leads were placed in the area of the rash, and since the leads were removed the rash has gotten worse. Fever, chills, nausea, vomiting, or abdominal pain Chief Complaint: Rash Time Seen by MD: 00:11 Primary Care Provider: DENIES History of Present Illness: Nurses Notes, Medications, Allergies Allergies: Coded Allergies: Penicillins (Verified Allergy, Severe, 05/29/23) Anaphylaxis Home Meds Active Scripts Doxycycline Hyclate (Doxycycline Hyclate) 100 Mg Cap, 1 CAP PO BID for 7 Days, #14 CAP Prov:CORTES FRANK 03/21/24 Sulfamethoxazole W/Trimethopri (Bactrim Ds Tablet) 1 Tab Tb, 1 TAB PO BID for 10 Days, #20 TAB Prov:KARSTEN PRIDE MD 05/30/23 Mode of Arrival: Ambulatory Past Medical History PAST MEDICAL HISTORY: DM, High Lipids, Liver Past Medical History (Other): Hepatitis-C Surgical History: Denies all surgeries Family History Family History: Unobtainable Social History Smoker: Cigarettes Alcohol: Occasionally Drugs: Heroin, Methamphetamine, Other Lives In: Home Constitutional: denies: chills, diaphoresis, fatigue, fever, malaise, sweats, weakness, others EENTM: denies: blurred vision, double vision, ear bleeding, ear discharge, ear drainage, ear pain, ear ringing, eye pain, eye redness, hearing loss, mouth pain, mouth swelling, nasal discharge, nose bleeding, nose congestion, nose pain, photophobia, tearing, throat pain, throat swelling, voice changes, others Respiratory: denies: cough, hemoptysis, orthopnea, SOB at rest, shortness of breath, SOB with excertion, stridor, wheezing, others Cardiovascular: denies: chest pain, dizzy spells, diaphoresis, Dyspnea on exertion, edema, irregular heart beat, left arm pain, lightheadedness, palpitations, PND, syncope, others Gastrointestinal: denies: abdomen distended, abdominal pain, blood streaked bowels, constipated, diarrhea, dysphagia, difficulty swallowing, hematemesis, melena, nausea, poor appetite, poor fluid intake, rectal bleeding, rectal pain, vomiting, others Genitourinary: denies: burning, dysuria, flank pain, frequency, hematuria, incontinence, penile discharge, penile sore, pain, testicle pain, testicle swelling, urgency, others Neurological: denies: dizziness, fainting, headache, left sided numbness, left sided weakness, numbness, paresthesia, pre-existing deficit, right sided numbness, right sided weakness, seizure, speech problems, tingling, tremors, we akness, others Musculoskeletal: denies: back pain, gout, joint pain, joint swelling, muscle pain, muscle stiffness, neck pain, others Integumetry: reports: rash (To lower mid abdomen); denies: bruises, change in color, change in hair/nails, dryness, laceration, lesions, lumps, wounds, others Allergic/Immunocompromised: denies: Difficulty Healing, Frequent Infections, Hives, Itching, others Hematologic/Lymphatic: denies: anemia, blood clots, easy bleeding, easy bruising, swollen glands, others Endocrine: denies: excessive hunger, excessive sweating, excessive thirst, excessive urination, flushing, intolerance to cold, intolerance to heat, unexplained weight gain, unexplained weight loss, others Psychiatric: denies: anxiety, bipolar disorder, depression, hopeless, panic disorder, schizophrenia, sleepless, suicidal, others Physical Exam General Appearance: No Apparent Distress, Normal HEENT: Pharynx Normal Neck: Full Range of Motion, Non-Tender Respiratory: Lungs Clear, No Respiratory Distress, Normal Breath Sounds Cardiovascular: No Edema, No JVD, No Murmur, No Gallop, Normal Peripheral Pulses, Regular Rate/Rhythm Breast Exam: Deferred Gastrointestinal: Non Tender, Soft Genitalia: Deferred Pelvic: Deferred Rectal: Deferred Extremities: No calf tenderness, Normal capillary refill, Normal inspection, Normal range of motion, Non-tender, No pedal edema Musculoskeletal : Apperance: Normal Neurologic: Alert, double reamer operator II-XII nml as Tested, No Motor Deficits, Normal Affect, Normal Mood, No Sensory Deficits Cerebellar Function: Normal Reflexes: Normal Skin: Dry, Normal Color, Rash (Cellulitic rash lower mid abdomen water slides lesion with surrounding erythema non fluctuant to lower mid abdomen without streaking or drainage.), Warm Lymphatic: No Adenopathy Was a procedure done? Was a procedure done?: No Differential Diagnosis (INTG) Differential Diagnosis: Cellulitis Differential Diagnosis: Urticaria X-Ray, Labs, Meds, VS Vital Signs Date Time Temp Pulse Resp B/P (MAP) Pulse Ox O2 Delivery O2 Flow Rate FiO2 03/20/24 23:59 97.6 100 20 136/91 (106) 98 X-Ray, Labs, Meds, VS Comment Noted cellulitic we will start trial of doxycycline 100 mg twice daily x7 days. History of allergy to penicillins. Advised to call the back of his insurance card and request a PCP within the area where he lives to follow up. Follow up in 2-3 days if unable to obtain a PCP follow back up in the ER or urgent care for wound re-evaluation. Advised to take antibiotics as prescribed complete entire course. ER return precautions given patient indicated understanding agrees with discharge plan of care. Time of 1ST Reevaluation: 02:38 Reevaluation 1ST: Improved Patient Education/Counseling: Diagnosis, Treatment, Prognosis, Need For Follow Up Family Education/Counseling: No Family Present Departure 1 Departure Time of Disposition: 02:38 Impression: Primary Impression: Cellulitis of abdominal wall Disposition: 01 HOME / SELF CARE / HOMELESS Condition: Stable e-Prescriptions Doxycycline Hyclate (Doxycycline Hyclate) 100 Mg Cap 1 CAP PO BID for 7 Days, #14 CAP Prov: CORTES FRANK 03/21/24 Discharged With: Self Critical Care Note Critical Care Time?: No Stability Stability form required: No CORTES FRANK Mar 21, 2024 02:24
[2024-03-21] MEDS ORDERED: DOXY100C4 PO (02:30)
[2024-03-21 02:51] VITALS: BP 129/84; PULSE 89; RESP 16; TEMP 98.4; O2SAT 100
== END 2024-03-21 02:57 | disposition home or self-care (01) ==
LOC: ER 23:44
DX: L03.311 Cellulitis of abdominal wall (principal); E11.9 Type 2 diabetes mellitus without complications; F17.210 Nicotine dependence, cigarettes, uncomplicated; Z88.0 Allergy status to penicillin

== ENCOUNTER 2024-05-07 20:33 | Emergency (ER) | payer MEDICAID ==
[~2024-05-07] VITALS: Ht 185.4 cm; Wt 88.2 kg
[2024-05-07] MEDS: ALBUTEROL SULF 2.5 MG/0.5ML(0.5%) NEB SOLN NEB ONE (22:41)
[2024-05-07] MEDS: IPRATROPIUM BROM 0.5 MG/2.5ML INH SOL NEB ONE (22:41)
--- NOTE | 2024-05-08 00:03 | ED.PDOC ---
SOB-HPI HPI Comments 58-year-old male came to ER for cough. Patient is homeless. Stays for the past 3 days, he has been having flu-like symptoms with cough, congestion, shortness of breath, chest discomfort, nausea and vomiting. Worsening of symptoms prompted patient to come to the ER. He does have history of methamphetamine abuse. Vital signs were stable on arrival. Chief Complaint: Cough Time Seen by MD: 00:02 Primary Care Provider: JESSICA Reviewed notes: Nurses Notes Information Source: Patient Mode of Arrival: Ambulatory Severity: Moderate Timing: Days Duration: Intermittent Context: With Light Exertion History of: None Prehospital treatment: None Modifying Factors: Nothing Associated Signs and Symptoms: Cough, Chest Pain Quality: Aching, Tightness Radiation: No Radiation If cough with SOB: Productive Past Medical History PAST MEDICAL HISTORY: DM, High Lipids, Liver Surgical History: Denies all surgeries Family History Family History: Unobtainable Social History Smoker: Cigarettes Alcohol: Occasionally Drugs: Methamphetamine, Other Lives In: Homeless Constitutional: reports: weakness; denies: chills, diaphoresis, fatigue, fever, malaise, sweats, others EENTM: denies: blurred vision, double vision, ear bleeding, ear discharge, ear drainage, ear pain, ear ringing, eye pain, eye redness, hearing loss, mouth pain, mouth swelling, nasal discharge, nose bleeding, nose congestion, nose pain, photophobia, tearing, throat pain, throat swelling, voice changes, others Respiratory: reports: cough, SOB at rest, shortness of breath; denies: hem optysis, orthopnea, SOB with excertion, stridor, wheezing, others Cardiovascular: reports: chest pain; denies: dizzy spells, diaphoresis, Dyspnea on exertion, edema, irregular heart beat, left arm pain, lightheadedness, palpitations, PND, syncope, others Gastrointestinal: reports: nausea; denies: abdomen distended, abdominal pain, blood streaked bowels, constipated, diarrhea, dysphagia, difficulty swallowing, hematemesis, melena, poor appetite, poor fluid intake, rectal bleeding, rectal pain, vomiting, others Genitourinary: denies: burning, dysuria, flank pain, frequency, hematuria, incontinence, penile discharge, penile sore, pain, testicle pain, testicle swelling, urgency, others Neurological: denies: dizziness, fainting, headache, left sided numbness, left sided weakness, numbness, paresthesia, pre-existing deficit, right sided numbness, right sided weakness, seizure, speech problems, tingling, tremors, weakness, others Musculoskeletal: denies: back pain, gout, joint pain, joint swelling, muscle pain, muscle stiffness, neck pain, others Integumetry: denies: bruises, change in color, change in hair/nails, dryness, laceration, lesions, lumps, rash, wounds, others Allergic/Immunocompromised: denies: Difficulty Healing, Frequent Infections, Hives, Itching, others Hematologic/Lymphatic: denies: anemia, blood clots, easy bleeding, easy bruising, swollen glands, others Endocrine: denies: excessive hunger, excessive sweating, excessive thirst, excessive urination, flushing, intolerance to cold, intolerance to heat, unexplained weight gain, unexplained weight loss, others Psychiatric: denies: anxiety, bipolar disorder, depression, hopeless, panic disorder, schizophrenia, sleepless, suicidal, others Physical Exam General Appearance: Moderate Distress (Patient appears to be in moderate distress at time of evaluation. Patient looks toxic.), Normal HEENT: Normal ENT Inspection, Pharynx Normal, TMs Normal Neck: Full Range of Motion, Non-Tender, Normal, Normal Inspection Respiratory: Chest Non-Tender, No Accessory Muscle Use, No Respiratory Dist ress, Normal Breath Sounds, Other (Rhonchi and wheezing appreciated in left upper and right upper lobe.) Cardiovascular: No Edema, No JVD, No Murmur, No Gallop, Normal Peripheral Pulses, Regular Rate/Rhythm Breast Exam: Deferred Gastrointestinal: No Pulsatile Mass, Normal Bowel Sounds, Soft Genitalia: Deferred Pelvic: Deferred Rectal: Deferred Extremities: No calf tenderness, Normal capillary refill, Normal inspection, Normal range of motion, Non-tender, No pedal edema Musculoskeletal : Apperance: Normal Neurologic: Alert, No Motor Deficits, Normal Affect, Normal Mood, No Sensory Deficits Cerebellar Function: Normal Reflexes: Normal Skin: Dry, Normal Color, Warm Lymphatic: No Adenopathy Was a procedure done? Was a procedure done?: No Differential Dx Differential Diagnosis: Asthma, Bronchitis, COPD, Pneumonia, Respiratory Distress, URI X-Ray, Labs, Meds, VS Vital Signs Date Time Temp Pulse Resp B/P (MAP) Pulse Ox O2 Delivery O2 Flow Rate FiO2 05/08/24 01:35 14 Nasal Cannula* 2 28 05/08/24 01:30 98.3 86 14 116/77 (90) 96 98.3 05/07/24 22:41 19 96 Nasal Cannula* 2 28 05/07/24 21:43 97.8 90 16 130/82 (98) 97 05/07/24 21:43 16 97 Room Air* 0 21 Lab Test 05/08/24 01:29 Range/Units Influenza Type A Antigen Negative Negative Influenza Type B Antigen Negative Negative SARS-CoV-2 Antigen (Rapid) Negative NEGATIVE Current Medications Medications (Trade) Dose Ordered Sig/Iam Route Start Time Stop Time Status Last Admin Albuterol (Ventolin Medneb) 5 mg ONCE ONCE NEB 05/07/24 22:15 05/07/24 22:17 DC 05/07/24 22:41 Ipratropium [place] (Atrovent Medneb) 0.5 mg ONCE ONCE NEB 05/07/24 22:15 05/07/24 22:17 DC 05/07/24 22:41 Dexamethasone Sodium Phosphate (Decadron Injection) 10 mg ONCE ONCE IM 05/07/24 22:15 05/07/24 22:17 DC 05/08/24 01:38 X-Ray, Labs, Meds, VS Comment All studies performed the ED were evaluated by me personally. Swabs studies were unremarkable for any COVID or influenza. Imaging studies revealed a possible early consolidation of left upper lobe. Patient will be started empirically on azithromycin and will receive 1st dose tonight prior to discharge. Advised patient utilize medication as directed until completion as well as additional medication as needed. Time of 1ST Reevaluation: 02:39 Reevaluation 1ST: Improved Consultation: PCP Patient Education/Counseling: Diagnosis, Treatment Family Education/Counseling: Diagnosis, Treatment, No Family Present Departure 1 Departure Time of Disposition: 02:39 Impression: Primary Impression: Bronchitis Disposition: 01 HOME / SELF CARE / HOMELESS Condition: Stable Additional Instructions: Advise utilizing antibiotics as directed until completion as well as additional medication as needed. Good hydration and healthy nutrition throughout illness event. e-Prescriptions Acetaminophen (Acetaminophen) 500 Mg Tab 500 MG PO Q4HP PRN, #30 TAB Prov: FERNY CALABRESE PAC 05/08/24 Benzonatate (Benzonatate) 100 Mg Cap 1 CAP PO Q8HP PRN, #15 CAP Prov: FERNY CALABRESE PAC 05/08/24 Dextromethorphan-Guaifenesin (Mucinex Dm Maximum Streng) 1 Tab Tab 1 TAB PO BID, #20 TAB Prov: FERNY CALABRESE PAC 05/08/24 Azithromycin (ZITHROMAX TABLET) 250 Mg Tb 250 MG PO DAILY for 4 Days, #4 TAB Prov: FERNY CALABRESE PAC 05/08/24 Discharged With: Self, Friend Critical Care Note Critical Care Time?: No Stability Stability form required: No Heart Score Heart Score: Heart Score Response (Comments) Value History N/A 0 EKG N/A 0 Age N/A 0 Risk Factors N/A 0 Troponin N/A 0 Total 0 I personally scribed for FERNY CALABRESE PAC ([email or web address]) on 05/08/24 at 00:03. Elect ronically submitted by Donte Odom ([facility]). FERNY CALABRESE PAC May 08, 2024 00:03
[2024-05-08 01:30] VITALS: BP 116/77; PULSE 86; TEMP 98.3; O2SAT 96
[2024-05-08 01:35] VITALS: RESP 14
[2024-05-08] MEDS: DexAMETHasone SOD PHOS 10MG/1ML VIAL INJ IM ONE (01:38)
[2024-05-08 02:11] LABS: COVID19 ANTIGEN SOFIA FIA NEGATIVE (NEGATIVE); Rapid Influenza A Negative (Negative); Rapid Influenza B Negative (Negative)
[2024-05-08] MEDS ORDERED: AZIT-185 PO (02:41)
[2024-05-08] MEDS ORDERED: ACET500T58 PO (02:41)
[2024-05-08] MEDS ORDERED: DEXT60TA4 PO (02:41)
[2024-05-08] MEDS ORDERED: BENZ100C97 PO (02:41)
--- NOTE | 2024-05-08 04:06 | DVH ---
Examination: CXRP Clinical Indication: Shortness of breath Comparison: None. Technique: Frontal view of chest radiograph. Findings: Evaluation of left upper and mid zones is limited, secondary to multiple wires noted. The lung parenchyma is clear. Hilar and mediastinal shadows show no obvious abnormality. Costophrenic angles are clear. Aorta is unfolded. Cardiac shadow size is within normal limits. Mildly displaced chronic fracture of the lateral end of the right clavicle is noted. Impression: 1. No significant abnormality is seen. 2. Mildly displaced chronic fracture of the lateral end of the right clavicle is noted. Electronically Signed 05/08/2024 04:05 Jamie Em
[2024-05-08] MEDS: AZITHROMYCIN 250 MG TAB PO ONE (04:17)
== END 2024-05-08 04:19 | disposition home or self-care (01) ==
LOC: ER 20:33
DX: J40 Bronchitis, not specified as acute or chronic (principal); F17.210 Nicotine dependence, cigarettes, uncomplicated; F15.90 Other stimulant use, unspecified, uncomplicated; E11.9 Type 2 diabetes mellitus without complications; E78.5 Hyperlipidemia, unspecified; Z59.00 Homelessness unspecified; Z79.899 Other long term (current) drug therapy; Z20.822 Contact with and (suspected) exposure to COVID-19
CPT/HCPCS: 36415; 71045; 87426; 87804; 94640; 96372; 99284; J1100

== ENCOUNTER 2024-05-08 09:30 | Emergency (ER) | payer MEDICAID ==
[~2024-05-08] VITALS: Ht 185.4 cm; Wt 78.8 kg
[~2024-05-08 09:30] MED LIST changes: +ACET500T58 PO; +AZIT-185 PO; +BENZ100C97 PO; +DEXT60TA4 PO
[2024-05-08 10:25] VITALS: BP 112/73; PULSE 79; RESP 17; TEMP 97.8; O2SAT 97
--- NOTE | 2024-05-08 10:31 | ED.PDOC ---
History of Present Illness HPI Comments A 58 YEAR OLD MALE PRESENTS TO THE ED WITH COMPLAINT OF SUTURE REMOVAL. PATIENT STATES HE HAD SUTURES PLACED ON HIS SCALP 10 DAYS AGO AND IS HERE IN THE ED TO HAVE THEM REMOVED. PATIENT DENIES FEVER, CHILLS, SHORTNESS OF BREATH, CHEST PAIN, ABDOMINAL PAIN, NAUSEA, VOMITING, HEADACHE, OR OTHER COMPLAINTS. NO OTHER SYMPTOMS OR MODIFYING FACTORS AT THIS TIME. PATIENT IS ALERT, ORIENTED X 4, AND HAS STEADY GAIT. Chief Complaint: Suture Removal Time Seen by MD: 09:44 Primary Care Provider: ROBERT Lerner Notes: Nurses Notes, Medications, Allergies Allergies: Coded Allergies: Penicillins (Verified Allergy, Severe, 05/29/23) Anaphylaxis Home Meds Active Scripts Acetaminophen (Acetaminophen) 500 Mg Tab, 500 MG PO Q4HP PRN, #30 TAB Prov:FERNY CALABRESE PAC 05/08/24 Benzonatate (Benzonatate) 100 Mg Cap, 1 CAP PO Q8HP PRN, #15 CAP Prov:FERNY CALABRESE 05/08/24 Dextromethorphan-Guaifenesin (Mucinex Dm Maximum Streng) 1 Tab Tab, 1 TAB PO BID, #20 TAB Prov:FERNY CALABRESE 05/08/24 Azithromycin (ZITHROMAX TABLET) 250 Mg Tb, 250 MG PO DAILY for 4 Days, #4 TAB Prov:FERNY CALABRESE 05/08/24 Sulfamethoxazole W/Trimethopri (Bactrim Ds Tablet) 1 Tab Tb, 1 TAB PO BID for 10 Days, #20 TAB Prov:KARSTEN PRIDE MD 05/30/23 Information Source: Patient Mode of Arrival: Ambulatory Severity: None Timing: Days Duration: Since onset, Days Prehospital treatment: None Medication Refill: For: Other (SUTURE REMOVAL) Past Medical History PAST MEDICAL HISTORY: DM, High Lipids, Liver Surgical History: Denies all surgeries Family History Family History: Reviewed,noncontributory to illness Social History Smoker: Cigarettes Alcohol: Occasionally Drugs: Methamphetamine, Other Lives In: Homeless Constitutional: denies: chills, diaphoresis, fatigue, fever, malaise, sweats, weakness, others EENTM: denies: blurred vision, double vision, ear bleeding, ear discharge, ear drainage, ear pain, ear ringing, eye pain, eye redness, hearing loss, mouth pain, mouth swelling, nasal discharge, nose bleeding, nose congestion, nose pain, photophobia, tearing, throat pain, throat swelling, voice changes, others Respiratory: denies: cough, hemoptysis, orthopnea, SOB at rest, shortness of breath, SOB with excertion, stridor, wheezing, others Cardiovascular: denies: chest pain, dizzy spells, diaphoresis, Dyspnea on exertion, edema, irregular heart beat, left arm pain, lightheadedness, palpitations, PND, syncope, others Gastrointestinal: denies: abdomen distended, abdominal pain, blood streaked bowels, constipated, diarrhea, dysphagia, difficulty swallowing, hematemesis, melena, nausea, poor appetite, poor fluid intake, rectal bleeding, rectal pain, vomiting, others Genitourinary: denies: burning, dysuria, flank pain, frequency, hematuria, incontinence, penile discharge, penile sore, pain, testicle pain, testicle swelling, urgency, others Neurological: denies: dizziness, fainting, headache, left sided numbness, left sided weakness, numbness, paresthesia, pre-existing deficit, right sided numbness, right sided weakness, seizure, speech problems, tingling, tremors, weakness, others Musculoskeletal: denies: back pain, gout, joint pain, joint swelling, muscle pain, muscle stiffness, neck pain, others Integumetry: reports: laceration (SCALP REPAIRED. ); denies: bruises, change in color, change in hair/nails, dryness, lesions, lumps, rash, wounds, others Allergic/Immunocompromised: denies: Difficulty Healing, Frequent Infections, Hives, Itching, others Hematologic/Lymphatic: denies: anemia, blood clots, easy bleeding, easy bruising, swollen glands, others Endocrine: denies: excessive hunger, excessive sweating, excessive thirst, excessive urination, flushing, intolerance to cold, intolerance to heat, unexplained weight gain, unexplained weight loss, others Psychiatric: denies: anxiety, bipolar disorder, depression, hopeless, panic disorder, schizophrenia, sleepless, suicidal, others All Other Systems: Reviewed and Negative Physical Exam General Appearance: No Apparent Distress, Normal HEENT: Normal ENT Inspection, PERRL/EOMI, Pharynx Normal, TMs Normal Neck: Full Range of Motion, Non-Tender, Normal, Normal Inspection Respiratory: Chest Non-Tender, Lungs Clear, No Accessory Muscle Use, No Respiratory Distress, Normal Breath Sounds Cardiovascular: No Edema, No JVD, No Murmur, No Gallop, Normal Peripheral Pulses, Regular Rate/Rhythm Breast Exam: Deferred Gastrointestinal: No Organomegaly, Non Tender, No Pulsatile Mass, Normal Bowel Sounds, Soft Genitalia: Deferred Pelvic: Deferred Rectal: Deferred Extremities: No calf tenderness, Normal capillary refill, Normal inspection, Normal range of motion, Non-tender, No pedal edema Musculoskeletal : Apperance: Normal Neurologic: Alert, in store marketing representative II-XII nml as Tested, No Motor Deficits, Normal Affect, Normal Mood, No Sensory Deficits Cerebellar Function: Normal Reflexes: Normal Skin: Dry, Lacerations (TOP OF SCALP REPAIRED, HEALED, NO INFECTION SIGNS. ), Normal Color, Warm Peripheral Pulses: 2+ carotid (R), 2+ carotid (L) Lymphatic: No Adenopathy Was a procedure done? Was a procedure done?: No Differential Dx Considerations may include: SUTURE REMOVAL, WOUND RECHECK, WOUND INFECTION X-Ray, Labs, Meds, VS Vital Signs Date Time Temp Pulse Resp B/P (MAP) Pulse Ox O2 Delivery O2 Flow Rate FiO2 05/08/24 10:25 97.8 79 17 112/73 (86) 97 97.8 05/08/24 10:25 79 17 97 Room Air 05/08/24 10:03 97.8 79 17 112/73 (86) 97 X-Ray, Labs, Meds, VS Comment EXTERNAL MEDICAL RECORDS REVIEWED: [NONE] INDEPENDENT HISTORIANS: [NONE] SOCIAL DETERMINANTS OF HEALTH: PATIENT IS CURRENTLY HOMELESS. LABS ORDERED: NONE REVIEWED AND INTERPRETED RESULTS: NONE IMAGING ORDERED: NONE TREATMENTS ORDERED: NONE PROCEDURES PERFORMED: NONE CRITICAL CARE TIME: NONE I HAVE DISCUSSED THE PATIENT WITH THE ATTENDING PHYSICIAN DR. SHELL AND HE AGREES WITH THE PATIENT'S PLAN OF CARE AND DISPOSITION. BASED ON HISTORY OF PRESENT ILLNESS, AND PHYSICAL EXAM, PATIENT WILL BE DISCHARGED HOME. SHARED DECISION MAKING: PATIENT INSTRUCTED TO FOLLOW UP WITH PRIMARY CARE PROVIDER IN 1-2 DAYS FOR RE-EVALUATION OF SYMPTOMS. PATIENT VERBALIZES UNDERSTANDING TO RETURN TO ED FOR NEW OR WORSENING SYMPTOMS OR IF FOLLOW UP WITH PCP CANNOT BE OBTAINED. PATIENT FEELS COMFORTABLE GOING HOME AT THIS TIME. ALL QUESTIONS ADDRESSED AT TIME OF DISCHARGE. Time of 1ST Reevaluation: 10:34 Reevaluation 1ST: Improved Patient Education/Counseling: Diagnosis, Treatment, Need For Follow Up Family Education/Counseling: Diagnosis, Treatment, Need For Follow Up Medical Screening: No EMC Exist At This Time Departure 1 Departure Time of Disposition: 10:40 Impression: Primary Impression: Encounter for removal of sutures Additional Impression: Hx of laceration of skin Disposition: 01 HOME / SELF CARE / HOMELESS Condition: Stable Additional Instructions: FOLLOW-UP WITH PCP IN 1 TO 2 DAYS. RETURN TO ED FOR ANY NEW OR WORSENING SYMPTOMS. Discharged With: Self Critical Care Note Critical Care Time?: No Stability Stability form required: No I personally scribed for FREDRICK NEWMAN ([email or web address]) on 05/08/24 at 10:31. Elect ronically submitted by Anders Lynch ([email or web address]). FREDRICK NEWMAN May 08, 2024 10:31
== END 2024-05-08 10:36 | disposition home or self-care (01) ==
LOC: ER 09:30
DX: S01.01XD Laceration without foreign body of scalp, subsequent encounter (principal); F17.210 Nicotine dependence, cigarettes, uncomplicated; E11.9 Type 2 diabetes mellitus without complications; E78.5 Hyperlipidemia, unspecified; Z48.02 Encounter for removal of sutures; Z88.0 Allergy status to penicillin; Z59.00 Homelessness unspecified; X58.XXXD Exposure to other specified factors, subsequent encounter